=== PATIENT | female | born 1975 | race African-American/Black ===

== ENCOUNTER 2018-04-25 14:39 | Emergency (ER) | payer SELFPAY ==
[2018-04-25 15:31] LABS: URINE HCG POC HCG NEGATIVE (Negative)
[2018-04-25 15:35] LABS: BILIRUBIN,URINE NEGATIVE (NEG); CLARITY,URINE CLEAR; COLOR,URINE YELLOW; GLUCOSE,URINE NEGATIVE (NEG); NITRITE,URINE NEGATIVE (NEG); PROTEIN,URINE NEGATIVE (NEG-TRACE); UROBILINOGEN,URINE 0.2 mg/dL (0.2 mg/dL)
[2018-04-25 15:38] LABS: NEG OBC UR NEG; POS OBC UR POS; U PREG PATIENT NEGATIVE (NEG)
[2018-04-25 15:40] LABS: BACTERIA,URINE FEW /HPF (0-FEW); RBC,URINE 0 /HPF (0-2); SQUAMOUS EPITHELIAL CELL,UR FEW /LPF
[2018-04-25 15:54] LABS: ADD MAN DIFF? NO
[2018-04-25 15:56] LABS: BASO % 0 % (0-3); EOS % 0 % (0-3); HEMATOCRIT 37.1 % (36.0-47.0); HEMOGLOBIN 12.6 g/dL (12.0-15.5); LYMPH # 0.6 x10^3/uL (1.0-4.8); LYMPH % 13 % (24-48); MEAN CORPUSCULAR HEMOGLOBIN 32 pg (25-35); MEAN CORPUSCULAR HGB CONC 34 g/dL (31-37); MEAN CORPUSCULAR VOLUME 95 fL (79-100); MONO # 0.1 x10^3/uL (0.0-1.1); MONO % 2 % (0-9); NEUT # 3.9 x10^3uL (1.8-7.7); NEUT % 85 % (31-73); PLATELET COUNT 228 x10^3/uL (140-400); RED BLOOD COUNT 3.93 x10^6/uL (3.50-5.40); RED CELL DISTRIBUTION WIDTH 13.1 % (11.5-14.5); WHITE BLOOD COUNT 4.6 x10^3/uL (4.0-11.0)
[2018-04-25 16:07] LABS: ANION GAP 9 (6-14); BLOOD UREA NITROGEN 16 mg/dL (7-20); BUN/CREATININE RATIO 20 (6-20); CALCIUM 9.1 mg/dL (8.5-10.1); CARBON DIOXIDE 24 mmol/L (21-32); CHLORIDE 104 mmol/L (98-107); CREATININE 0.8 mg/dL (0.6-1.0); GFR 94.3; GLUCOSE 124 mg/dL (70-99); POTASSIUM 3.4 mmol/L (3.5-5.1); SODIUM 137 mmol/L (136-145)
[2018-04-25] MEDS: ONDANSETRON PF 4 MG/2 ML VIAL. IV (16:07)
[2018-04-25] MEDS: fentaNYL PF VIAL 100 MCG/2 ML VIAL IV (16:08)
[2018-04-25 16:13] LABS: ALBUMIN 3.7 g/dL (3.4-5.0); ALBUMIN/GLOBULIN RATIO 0.9 (1.0-1.7); ALK PHOS 47 U/L (46-116); ALT (SGPT) 27 U/L (14-59); AST (SGOT) 22 U/L (15-37); C-REACTIVE PROTEIN 0.9 mg/L (0-3.3); TOTAL BILIRUBIN 0.4 mg/dL (0.2-1.0)
== END 2018-04-25 19:15 | disposition home or self-care (01) ==
LOC: ER 14:39
DX: R10.11 Right upper quadrant pain (principal)
CPT/HCPCS: 36415; 76705; 80053; 81001; 81025; 85025; 86140; 96374; 96375; 99285-25; J2405; J3010